=== PATIENT | male | born 2000 | race Caucasian/White ===

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

== ENCOUNTER 2019-12-17 19:41 | Outpatient (REF) | payer BC, SELFPAY ==
[2019-12-21 10:06] LABS: COVID-19 RT-PCR Result Not Detected (NotDetected)
== END 2019-12-17 20:01 ==
LOC: NCHCN 19:41
PROVIDERS: PCP Nurse Practitioner; Visit Provider Nurse Practitioner
DX: Z20.828 Contact with and (suspected) exposure to other viral communicable diseases (principal); R05 Cough
CPT/HCPCS: U0003

== ENCOUNTER 2020-08-29 18:31 | Outpatient (REF) | payer BC, SELFPAY ==
[2020-08-31 13:43] LABS: Patient Race White; SARS-CoV-2 RNA Undetected (Undetected); SARS-CoV-2 Specimen Source Nasal
== END 2020-08-29 18:51 ==
LOC: NCHCN 18:31
PROVIDERS: PCP Nurse Practitioner; Visit Provider Nurse Practitioner Family
DX: Z11.59 Encounter for screening for other viral diseases (principal)
CPT/HCPCS: U0003

== ENCOUNTER 2021-03-27 20:10 | Outpatient (REF) | payer BC, SELFPAY ==
[2021-03-27 20:43] LABS: Calculated LDL 110 mg/dL (<100); Cholesterol 188 mg/dL (<200); HDL Cholesterol 40 mg/dL (40-60); Triglyceride 193 mg/dL (<150)
[2021-03-27 20:44] LABS: COMMENT (LAB VIEW ONLY) 251.74 mg/dL; Microalb ug/mg Crea 27.3 ug/mg Cr
== END 2021-03-27 20:11 | disposition home or self-care (01) ==
LOC: NCHCN 20:10
PROVIDERS: PCP Nurse Practitioner; Visit Provider Family Medicine
DX: Z00.00 Encounter for general adult medical examination without abnormal findings (principal); I10 Essential (primary) hypertension
CPT/HCPCS: 80061; 82043; 82570

== ENCOUNTER 2021-10-24 04:11 | Outpatient (CLI) | payer BC, SELFPAY ==
[2021-10-31 11:55] LABS: Renin Activity, Plasma 3.7 ng/mL/h
== END 2021-10-24 04:12 | disposition home or self-care (01) ==
LOC: LBO 04:12
PROVIDERS: PCP Nurse Practitioner; Visit Provider Family Medicine
DX: I10 Essential (primary) hypertension (principal)
CPT/HCPCS: 36415; 82088; 84244

== ENCOUNTER 2022-05-23 20:49 | Outpatient (REF) | payer BC, SELFPAY ==
[2022-05-23 22:05] LABS: Anion Gap 12.3 mmol/L (3-11); BUN 16 mg/dL (7-18); CO2 26.7 mmol/L (21.0-32.0); CREATININE 0.8 mg/dL (0.70-1.30); Calcium 10.7 mg/dL (8.5-10.1); Chloride 101 mmol/L (98-107); Glucose 97 mg/dL (74-106); Potassium 4.4 mmol/L (3.5-5.1); Sodium 140 mmol/L (136-145)
[2022-05-23 22:15] LABS: Hemoglobin A1C 5.5 % (<5.7)
[2022-05-23 22:20] LABS: COMMENT (LAB VIEW ONLY) 130.51 mg/dL; PROTEIN 15.2 mg/dL; Prot/Crea Ur Ratio 0.11
== END 2022-05-23 20:50 | disposition home or self-care (01) ==
LOC: NCHCN 20:49
PROVIDERS: PCP Nurse Practitioner; Visit Provider Family Medicine
DX: I10 Essential (primary) hypertension (principal)
CPT/HCPCS: 80048; 82565; 83036; 84156

== ENCOUNTER 2023-02-05 17:51 | Outpatient (REF) | payer BC, SELFPAY ==
[2023-02-06 11:19] LABS: Measles IgG Antibody Positive (See Note); Mumps Antibody IgG Positive (See Note); Rubella IgG Ab (UVM) Positive (See Note)
[2023-02-06 11:21] LABS: Syphilis Serology (RPR) Negative (Negative)
== END 2023-02-05 17:52 | disposition home or self-care (01) ==
LOC: LBN 17:51
PROVIDERS: PCP Nurse Practitioner; Visit Provider Nurse Practitioner Family
DX: Z11.3 Encounter for screening for infections with a predominantly sexual mode of transmission (principal); Z11.59 Encounter for screening for other viral diseases; Z01.84 Encounter for antibody response examination
CPT/HCPCS: 86592; 86735; 86762; 86765

== ENCOUNTER 2023-04-23 18:07 | Outpatient (REF) | payer BC, SELFPAY ==
[2023-04-23 21:23] LABS: Abs Immature Grans 0.03 10^3/uL (0.0-0.06); Absolute Eosinophil Count 0.33 10^3/uL (0.0-0.7); Absolute Monocyte Count 0.73 10^3/uL (0.1-0.8); Absolute Neutrophil Count 5.56 10^3/uL (1.2-6.7); Basophils % 1.1; Eosinophils % 3.7; HCT 46.3 % (40.0-50.0); HGB 16.6 g/dL (13.5-17.5); Immature Grans % 0.3; Lymphocytes % 24.6; MCH 30.9 pg (27.0-33.0); MCHC 35.9 % (32.0-36.0); MCV 86 fL (80-95); MPV 9.5 fL (8.0-11.0); Monocytes % 8.2; Neutrophils % 62.1; Platelet Count 318 10^3/uL (130-400); RBC 5.38 10^6/uL (4.36-5.78); RDW 11.5 % (11.8-14.1); RDW-SD 35.8 fL; WBC 8.95 10^3/uL (4.4-10.8)
[2023-04-23 21:24] LABS: ESR 5 mm/hr (0-15)
[2023-04-23 21:44] LABS: ALT 53 U/L (16-63); AST 19 U/L (15-37); Albumin 4.4 g/dL (3.4-5.0); Alkaline Phosphatase 70 U/L (46-116); Anion Gap 10.8 mmol/L (3-11); BUN 15 mg/dL (7-18); Bilirubin, Total 0.4 mg/dL (0.2-1.0); CO2 27.2 mmol/L (21.0-32.0); CREATININE 0.8 mg/dL (0.70-1.30); Calcium 9.5 mg/dL (8.5-10.1); Chloride 102 mmol/L (98-107); Estimated GFR 127.53 (mL/min/1.73m2); Glucose 113 mg/dL (74-106); Potassium 3.8 mmol/L (3.5-5.1); Sodium 140 mmol/L (136-145); Total Protein 7.5 g/dL (6.4-8.2)
[2023-04-25 12:39] LABS: IgA 125 mg/dL (85-499); Interpretation (See Note); Tissue Transglutaminase IgA <1.2 U/mL (<4.0)
== END 2023-04-23 18:08 | disposition home or self-care (01) ==
LOC: LBN 18:07
PROVIDERS: PCP Nurse Practitioner; Visit Provider Nurse Practitioner Family
DX: K62.5 Hemorrhage of anus and rectum (principal); H60.543 Acute eczematoid otitis externa, bilateral; R19.4 Change in bowel habit
CPT/HCPCS: 80053; 82784; 83516; 85652; 85025

== ENCOUNTER 2023-05-16 15:04 | Outpatient (REF) | payer BC, SELFPAY ==
[2023-05-20 12:35] LABS: Calprotectin <50.0 mcg/g
== END 2023-05-16 15:05 | disposition home or self-care (01) ==
LOC: NCHCN 15:04
PROVIDERS: PCP Nurse Practitioner; Visit Provider Family Medicine
DX: R19.7 Diarrhea, unspecified (principal)
CPT/HCPCS: 87329; 87493; 83993